=== PATIENT | male | born 1950 | race Caucasian/White ===

== ENCOUNTER 2022-05-11 13:55 | Inpatient (IN) | payer MEDICARE, OTHER ==
[~2022-05-11] VITALS: Ht 182.9 cm; Wt 88.5 kg
[~2022-05-11 13:55] MED LIST: SULFAMETHOXAZO1 EACH PO
[2022-05-11 15:01] LABS: HEMOGLOBIN 10.5 gm/dl (14.0-17.5); RED BLOOD COUNT 3.4 M/UL (4.20-5.50); WHITE BLOOD COUNT 9.4 K/UL (4.5-11.0)
[2022-05-11] MEDS ORDERED: B-121000 MCG PO (17:39)
[2022-05-11] MEDS ORDERED: VITAMIN C500 M4 PO (17:39)
[2022-05-11] MEDS ORDERED: VITAMIN D325 MCG PO (17:39)
[2022-05-12 05:13] LABS: HEMOGLOBIN 10.8 gm/dl (14.0-17.5); RED BLOOD COUNT 3.59 M/UL (4.20-5.50); WHITE BLOOD COUNT 10.9 K/UL (4.5-11.0)
[2022-05-15 08:19] LABS: RED BLOOD COUNT 3.26 M/UL (4.20-5.50); WHITE BLOOD COUNT 6.8 K/UL (4.5-11.0)
[2022-05-15] MEDS ORDERED: INVANZ 1 GM VIAL1 GM IV (14:01)
[2022-05-15] MEDS ORDERED: INVANZ 1 GM VIAL1 GM IM (14:02)
[2022-05-15] MEDS ORDERED: LOPRESSOR 25 MG25 MG PO (14:41)
[2022-05-15] MEDS ORDERED: AMLODIPINE BESY10 MG PO (14:41)
[2022-05-15] MEDS ORDERED: LIPITOR40 MG PO (14:41)
[2022-05-15] MEDS ORDERED: ASPIRIN EC81 MG PO (14:41)
[2022-05-15] MEDS ORDERED: DOCUSATE SODIU100 MG PO (14:53)
[2022-05-15] MEDS ORDERED: POLYETHYLENE GL17 GM PO (14:53)
[2022-05-15] MEDS ORDERED: METFORMIN HCL500 MG PO (14:53)
[2022-05-15] MEDS ORDERED: HYDROCODON-ACE1 EAC4 PO (14:53)
[2022-05-15] MEDS ORDERED: HYDRALAZINE HCL25 MG PO (15:00)
== END 2022-05-15 15:58 | disposition home health service (06) | DRG 638 ==
LOC: ER1 13:55 → M/S 15:42 → CDU 15:42 → M/S 18:57
PROVIDERS: Emergency Medicine; Physician Assistant; ADMIT Internal Medicine
DX: E11.621 Type 2 diabetes mellitus with foot ulcer (principal); E87.1 Hypo-osmolality and hyponatremia; M86.172 Other acute osteomyelitis, left ankle and foot; E11.69 Type 2 diabetes mellitus with other specified complication; N17.9 Acute kidney failure, unspecified; N18.30 Chronic kidney disease, stage 3 unspecified; E11.22 Type 2 diabetes mellitus with diabetic chronic kidney disease; I12.9 Hypertensive chronic kidney disease with stage 1 through stage 4 chronic kidney disease, or unspecified chronic kidney disease; B95.7 Other staphylococcus as the cause of diseases classified elsewhere; B96.4 Proteus (mirabilis) (morganii) as the cause of diseases classified elsewhere; E55.9 Vitamin D deficiency, unspecified; E53.8 Deficiency of other specified B group vitamins; E11.51 Type 2 diabetes mellitus with diabetic peripheral angiopathy without gangrene; I73.9 Peripheral vascular disease, unspecified; I16.0 Hypertensive urgency; D64.9 Anemia, unspecified; E88.09 Other disorders of plasma-protein metabolism, not elsewhere classified; L97.529 Non-pressure chronic ulcer of other part of left foot with unspecified severity; Z79.899 Other long term (current) drug therapy; Z82.49 Family history of ischemic heart disease and other diseases of the circulatory system
CPT/HCPCS: 73630; 80048; 80053; 80202; 81001; 82570; 82962; 83036; 84156; 85025; 85027; 85652; 86140; 87070; 87077; 87086; 87186; 87205; 89050; 93925; 96374; 96375; 99284; J0360; J1335; J1644; J2185; J2543; J3370; J7050; J7070

== ENCOUNTER → 2022-05-16 | Outpatient (CLI) | payer MEDICARE ==
[~2022-05-16] VITALS: Ht 182.9 cm; Wt 88.5 kg
[~2022-05-16] MED LIST changes: +AMLODIPINE BESY10 MG PO; +ASPIRIN EC81 MG PO; +B-121000 MCG PO; +DOCUSATE SODIU100 MG PO; +HYDRALAZINE HCL25 MG PO; +HYDROCODON-ACE1 EAC4 PO; +INVANZ 1 GM VIAL1 GM IM; +INVANZ 1 GM VIAL1 GM IV; +LIPITOR40 MG PO; +LOPRESSOR 25 MG25 MG PO; +METFORMIN HCL500 MG PO; +POLYETHYLENE GL17 GM PO; +VITAMIN C500 M4 PO; +VITAMIN D325 MCG PO
== END ==
LOC: OPSV 13:00
DX: M86.9 Osteomyelitis, unspecified (principal)
CPT/HCPCS: 96365; J1335

== ENCOUNTER → 2022-05-17 | Outpatient (CLI) | payer MEDICARE ==
[~2022-05-17] VITALS: Ht 182.9 cm; Wt 88.5 kg
== END ==
LOC: OPSV 12:49
DX: M86.9 Osteomyelitis, unspecified (principal)
CPT/HCPCS: 96365; J1335

== ENCOUNTER → 2022-05-18 | Outpatient (CLI) | payer MEDICARE, OTHER ==
[~2022-05-18] VITALS: Ht 182.9 cm; Wt 88.5 kg
== END ==
LOC: OPSV 13:00
DX: M86.9 Osteomyelitis, unspecified (principal)
CPT/HCPCS: 96365; J1335

== ENCOUNTER → 2022-05-19 | Outpatient (CLI) | payer MEDICARE, OTHER ==
[~2022-05-19] VITALS: Ht 182.9 cm; Wt 88.5 kg
== END ==
LOC: OPSV 13:00
DX: M86.9 Osteomyelitis, unspecified (principal)
CPT/HCPCS: 96365; J1335

== ENCOUNTER → 2022-05-20 | Outpatient (CLI) | payer MEDICARE, OTHER | LOC: OPSV 07:00 → EROP 12:40 → OPSV 13:00 | DX: M86.9 Osteomyelitis, unspecified (principal) | CPT/HCPCS: 96365 ==

== ENCOUNTER → 2022-05-21 | Outpatient (CLI) | payer MEDICARE, OTHER | LOC: OPSV 07:00 → EROP 13:26 | DX: M86.9 Osteomyelitis, unspecified (principal) | CPT/HCPCS: 96365; J1335 ==

== ENCOUNTER → 2022-05-22 | Outpatient (CLI) | payer MEDICARE, OTHER ==
[~2022-05-22] VITALS: Ht 182.9 cm; Wt 88.5 kg
== END ==
LOC: OPSV 13:00
DX: M86.9 Osteomyelitis, unspecified (principal)
CPT/HCPCS: 96365; J1335

== ENCOUNTER → 2022-05-23 | Outpatient (CLI) | payer MEDICARE, OTHER | LOC: OPSV 13:00 | DX: M86.9 Osteomyelitis, unspecified (principal) | CPT/HCPCS: 96365; J1335 ==

== ENCOUNTER → 2022-05-24 | Outpatient (CLI) | payer MEDICARE, OTHER ==
[~2022-05-24] VITALS: Ht 182.9 cm; Wt 88.5 kg
== END ==
LOC: OPSV 12:50
PROVIDERS: Internal Medicine
DX: M86.9 Osteomyelitis, unspecified (principal)
CPT/HCPCS: 80048; 96365; J1335

== ENCOUNTER → 2022-05-25 | Outpatient (CLI) | payer MEDICARE ==
[~2022-05-25] VITALS: Ht 182.9 cm; Wt 88.5 kg
== END ==
LOC: OPSV 12:18
DX: M86.9 Osteomyelitis, unspecified (principal)
CPT/HCPCS: 96365; J1335

== ENCOUNTER → 2022-05-26 | Outpatient (CLI) | payer MEDICARE | LOC: OPSV 13:00 | DX: M86.8X7 Other osteomyelitis, ankle and foot (principal) | CPT/HCPCS: 96365; J1335 ==